=== PATIENT | female | born 1945 | race Caucasian/White ===

== ENCOUNTER → 2016-06-23 | Outpatient (CLI) | payer MEDICARE ==
[~2016-06-23] MED LIST: CYAN10002 SC; DICL-201 PO; DOCU100C PO; ELET40TA PO; GLC/500 PO; HYDR-5688 PO; INSU100I SC; INSUINJ4 SC; LORA-741 PO; METF500T PO; ONDA8TAB12 PO; PHEN32.44 PO; TIZA4CAP PO
[2016-06-23 18:05] LABS: BASO % 0.4 %; BASO ABS # 0.02 K/uL (0-0.2); COMPLETE YES; HEMATOCRIT 30.3 % (37-47); IG% 0.2 %; LYMPH % 7.7 %; LYMPH ABS # 0.44 K/uL (1.2-3.4); MEAN CELL VOLUME 83.2 fL (80-100); MEAN CORPUSCULAR HEMOGLOBIN 26.9 pg (25-34); MEAN CORPUSCULAR HGB CONC 32.3 g/dl (32-36); MEAN PLATELET VOLUME 8.6 fL (7.4-10.4); MONO % 11.4 %; NEUT % 77.3 %; PLATELET COUNT 338 K/uL (130-400); RED BLOOD COUNT 3.64 M/uL (4.2-5.4); WHITE BLOOD COUNT 5.69 K/uL (4.8-10.8)
[2016-06-23 18:16] LABS: BLOOD UREA NITROGEN 16 mg/dl (7-18); BUN/CREATININE RATIO 17.5 (10-20); CALCIUM 8.9 mg/dl (8.5-10.1); CARBON DIOXIDE 23 mmol/L (21-32); CHLORIDE 98 mmol/L (98-107); CREATININE 0.91 mg/dl (0.60-1.20); GLUCOSE 124 mg/dl (70-99); POTASSIUM 4.7 mmol/L (3.5-5.1); SODIUM 132 mmol/L (136-145)
[2016-06-23 18:17] LABS: TOTAL IRON BINDING CAPACITY 410 mcg/dl (250-450)
[2016-06-24 06:16] LABS: ESTIMATED AVERAGE GLUCOSE 171 mg/dl; HA1C FLAG Normal (Normal)
== END | disposition home or self-care (01) ==
LOC: C.LABMFLN 11:11
PROVIDERS: ATTEND Family Medicine
DX: D50.9 Iron deficiency anemia, unspecified (principal); E11.9 Type 2 diabetes mellitus without complications

== ENCOUNTER → 2016-09-22 | Outpatient (CLI) | payer MEDICARE ==
[2016-09-22 18:20] LABS: ALT/SGPT 14 U/L (12-78); AST/SGOT 11 U/L (15-37); BLOOD UREA NITROGEN 11 mg/dl (7-18); BUN/CREATININE RATIO 12.7 (10-20); CALCIUM 8.8 mg/dl (8.5-10.1); CARBON DIOXIDE 27 mmol/L (21-32); CHLORIDE 100 mmol/L (98-107); CREATININE 0.89 mg/dl (0.60-1.20); GLUCOSE 84 mg/dl (70-99); POTASSIUM 4.7 mmol/L (3.5-5.1); SODIUM 135 mmol/L (136-145)
[2016-09-22 18:22] LABS: ALB/GLOB RATIO 1.4 (0.9-2); ALKALINE PHOSPHATASE 131 U/L (45-117); CHOLESTEROL 204 mg/dl (0-200); CHOLESTEROL/HDL RATIO 2.3; HDL CHOLESTEROL 87 mg/dl; LDL CHOLESTEROL CALCULATED 97 mg/dl; TRIGLYCERIDES 98 mg/dl (0-150); VERY LOW DENSITY LIPOPROT CALC 20 mg/dl
[2016-09-22 18:25] LABS: BASO % 0.5 %; BASO ABS # 0.02 K/uL (0-0.2); COMPLETE YES; EOS % 3.5 %; HEMATOCRIT 29.6 % (37-47); LYMPH % 26.1 %; LYMPH ABS # 1.11 K/uL (1.2-3.4); MEAN CELL VOLUME 83.1 fL (80-100); MEAN CORPUSCULAR HEMOGLOBIN 25.8 pg (25-34); MEAN CORPUSCULAR HGB CONC 31.1 g/dl (32-36); MONO % 15.3 %; NEUT % 54.6 %; PLATELET COUNT 319 K/uL (130-400); RED BLOOD COUNT 3.56 M/uL (4.2-5.4); WHITE BLOOD COUNT 4.26 K/uL (4.8-10.8)
[2016-09-23 06:19] LABS: ESTIMATED AVERAGE GLUCOSE 166 mg/dl; HA1C FLAG Normal (Normal)
== END | disposition home or self-care (01) ==
LOC: C.LABMFLN 10:56
PROVIDERS: ATTEND Family Medicine
DX: D50.9 Iron deficiency anemia, unspecified (principal); E78.5 Hyperlipidemia, unspecified; E11.9 Type 2 diabetes mellitus without complications

== ENCOUNTER → 2016-10-29 | Outpatient (CLI) | payer MEDICARE ==
[2016-10-29 18:16] LABS: BASO % 0.7 %; BASO ABS # 0.03 K/uL (0-0.2); COMPLETE YES; EOS % 2.9 %; IG% 0.2 %; LYMPH % 28.7 %; LYMPH ABS # 1.29 K/uL (1.2-3.4); MEAN CELL VOLUME 81.8 fL (80-100); MEAN CORPUSCULAR HEMOGLOBIN 25.9 pg (25-34); MEAN CORPUSCULAR HGB CONC 31.6 g/dl (32-36); MEAN PLATELET VOLUME 8.8 fL (7.4-10.4); MONO % 12.2 %; NEUT % 55.3 %; PLATELET COUNT 296 K/uL (130-400); RED BLOOD COUNT 3.79 M/uL (4.2-5.4)
[2016-10-29 19:23] LABS: FERRITIN 6.7 ng/ml (8.0-388.0)
[2016-10-31 18:43] LABS: ALBUMIN 4.4 G/DL (3.8-4.8); GAMMA GLOBULIN 0.7 G/DL (0.8-1.7); TOTAL PROTEIN 6.8 G/DL (6.2-8.3)
--- NOTE | 2016-11-03 11:57 | CODING QUERY MEDICAL NECESSITY ---
CQSUPPORTING DIAGNOSIS NEEDED A supporting diagnosis is required for the test/procedure performed on this patient in order for us to be reimbursed by the patient's insurance. Please provide a supporting diagnosis for the following test/procedure listed below next to the test name along with your signature. *If there is no additional diagnosis for this patient that would support the following test/procedure please document that below next to the test/procedure. Test(s)/Procedure(s) that require a supporting diagnosis: DOS 10/29/16 VITAMIN B12 FOLIC ACID Provider Signature: Date: Thank you Parvin [facility] Once completed, please kindly fax back to [phone] For questions please call [phone]
== END | disposition home or self-care (01) ==
LOC: C.LABMFLN 13:24
PROVIDERS: ATTEND Family Medicine
DX: D64.9 Anemia, unspecified (principal)

== ENCOUNTER → 2016-12-23 | Outpatient (CLI) | payer MEDICARE ==
[2016-12-23 18:09] LABS: BASO % 0.5 %; BASO ABS # 0.02 K/uL (0-0.2); COMPLETE YES; EOS % 3.9 %; HEMATOCRIT 35.8 % (37-47); IG% 0.2 %; LYMPH % 25.3 %; MEAN CELL VOLUME 89.7 fL (80-100); MEAN CORPUSCULAR HEMOGLOBIN 28.8 pg (25-34); MEAN CORPUSCULAR HGB CONC 32.1 g/dl (32-36); MONO % 13.6 %; NEUT % 56.5 %; PLATELET COUNT 242 K/uL (130-400); RED BLOOD COUNT 3.99 M/uL (4.2-5.4); WHITE BLOOD COUNT 4.34 K/uL (4.8-10.8)
[2016-12-23 18:16] LABS: BLOOD UREA NITROGEN 9 mg/dl (7-18); BUN/CREATININE RATIO 9.8 (10-20); CALCIUM 9.1 mg/dl (8.5-10.1); CARBON DIOXIDE 27 mmol/L (21-32); CHLORIDE 100 mmol/L (98-107); CREATININE 0.91 mg/dl (0.60-1.20); GLUCOSE 122 mg/dl (70-99); POTASSIUM 4.1 mmol/L (3.5-5.1); SODIUM 133 mmol/L (136-145)
[2016-12-23 18:20] LABS: FERRITIN 68.2 ng/ml (8.0-388.0); PHOSPHORUS 3.4 mg/dl (2.5-4.9)
[2016-12-24 06:15] LABS: ESTIMATED AVERAGE GLUCOSE 146 mg/dl; HA1C FLAG Normal (Normal)
== END | disposition home or self-care (01) ==
LOC: C.LABMFLN 13:35
PROVIDERS: ATTEND Family Medicine
DX: D50.9 Iron deficiency anemia, unspecified (principal); E11.9 Type 2 diabetes mellitus without complications

== ENCOUNTER → 2017-06-24 | Outpatient (CLI) | payer MEDICARE ==
[2017-06-24 18:02] LABS: ALBUMIN 4.1 gm/dl (3.4-5.0); BASO % 0.1 %; BASO ABS # 0.01 K/uL (0-0.2); BLOOD UREA NITROGEN 13 mg/dl (7-18); CALCIUM 9.4 mg/dl (8.5-10.1); CARBON DIOXIDE 28 mmol/L (21-32); CREATININE 0.92 mg/dl (0.60-1.20); EOS % 1.2 %; EOS ABS # 0.12 K/uL (0-0.5); GLUCOSE 130 mg/dl (70-99); HEMATOCRIT 39.5 % (37-47); IG# 0.02 K/uL (0.00-0.02); LYMPH % 11.2 %; LYMPH ABS # 1.09 K/uL (1.2-3.4); MEAN CELL VOLUME 96.3 fL (80-100); MEAN CORPUSCULAR HEMOGLOBIN 31.7 pg (25-34); MEAN CORPUSCULAR HGB CONC 32.9 g/dl (32-36); MEAN PLATELET VOLUME 9.8 fL (7.4-10.4); MONO % 7.7 %; MONO ABS # 0.75 K/uL (0.11-0.59); NEUT % 79.6 %; PLATELET COUNT 279 K/uL (130-400); POTASSIUM 4.7 mmol/L (3.5-5.1); RED CELL DISTRIBUTION WIDTH CV 13.8 % (11.5-14.5); RED CELL DISTRIBUTION WIDTH SD 48.8 fL (36.4-46.3); SODIUM 130 mmol/L (136-145); WHITE BLOOD COUNT 9.69 K/uL (4.8-10.8)
[2017-06-24 18:14] LABS: PHOSPHORUS 3.7 mg/dl (2.5-4.9)
[2017-06-25 05:44] LABS: HEMOGLOBIN A1C 6.9 % (4.5-5.6)
== END | disposition home or self-care (01) ==
LOC: C.LABMFLN 11:07
PROVIDERS: ATTEND Family Medicine
DX: R35.0 Frequency of micturition (principal); E11.9 Type 2 diabetes mellitus without complications; E03.9 Hypothyroidism, unspecified

== ENCOUNTER → 2017-08-27 | Outpatient (CLI) | payer MEDICARE ==
[2017-08-27 18:08] LABS: ALBUMIN 4.2 gm/dl (3.4-5.0); BLOOD UREA NITROGEN 10 mg/dl (7-18); CALCIUM 9.6 mg/dl (8.5-10.1); CARBON DIOXIDE 28 mmol/L (21-32); CREATININE 0.81 mg/dl (0.60-1.20); GLUCOSE 59 mg/dl (70-99); PHOSPHORUS 3.6 mg/dl (2.5-4.9); POTASSIUM 4.5 mmol/L (3.5-5.1); SODIUM 131 mmol/L (136-145)
== END | disposition home or self-care (01) ==
LOC: C.LABMFLN 14:41
PROVIDERS: ATTEND Family Medicine
DX: E11.65 Type 2 diabetes mellitus with hyperglycemia (principal)

== ENCOUNTER → 2017-09-14 | Outpatient (CLI) | payer MEDICARE ==
[2017-09-14 18:21] LABS: SODIUM RANDOM URINE 104 mEq/L
[2017-09-14 18:27] LABS: OSMOLALITY,URINE 488 mOms/kg (500-800)
== END | disposition home or self-care (01) ==
LOC: C.LABMFLN 11:57
PROVIDERS: ATTEND Family Medicine
DX: E87.1 Hypo-osmolality and hyponatremia (principal)

== ENCOUNTER → 2017-12-18 | Outpatient (CLI) | payer MEDICARE ==
[2017-12-18 18:42] LABS: ALBUMIN 4.1 gm/dl (3.4-5.0); BLOOD UREA NITROGEN 8 mg/dl (7-18); CALCIUM 8.7 mg/dl (8.5-10.1); CARBON DIOXIDE 28 mmol/L (21-32); CREATININE 0.73 mg/dl (0.60-1.20); GLUCOSE 70 mg/dl (70-99); PHOSPHORUS 3.9 mg/dl (2.5-4.9); SODIUM 133 mmol/L (136-145); URIC ACID 4.3 mg/dl (2.6-7.2)
== END | disposition home or self-care (01) ==
LOC: C.LABMFLN 14:51
PROVIDERS: ATTEND Internal Medicine Nephrology
DX: E87.1 Hypo-osmolality and hyponatremia (principal)